=== PATIENT | female | born 1985 | race Caucasian/White ===

== ENCOUNTER 2019-07-10 05:46 | Inpatient (IN) | payer BC ==
[~2019-07-10] VITALS: Ht 180.3 cm; Wt 82.4 kg
[2019-07-10] VITALS (24 sets, daily range): BP systolic 80–157; BP diastolic 44–91
--- NOTE | 2019-07-10 05:53 | NUR ---
KE ARCHER presented to unit via ambulation from home/ED, accompanied by SO, with c/o LABOR, ctxs. KE ARCHER weighed, gowned, voided, and to bed. EFHM and TOCO applied, VS taken. KE ARCHER oriented to bed controls, call light, TV, heat, and A/C controls.
[2019-07-10] MEDS ORDERED: D5 LR IV SOLUTION 1,000 ML IV ONE (06:01)
[2019-07-10] MEDS ORDERED: D5 LR IV SOLUTION 1,000 ML IV SCH (06:10)
[2019-07-10] MEDS ORDERED: PREN-142 PO (06:21)
[2019-07-10 06:50] LABS: BASOPHILS % (AUTO) 0 % (0-10); EOSINOPHILS # (AUTO) 0.2 10^3/uL (0.0-0.3); EOSINOPHILS % (AUTO) 1 % (0-10); HEMATOCRIT 41 % (35-52); HEMOGLOBIN 13.4 G/DL (11.5-16.0); LYMPHOCYTES # (AUTO) 1.9 X 10^3 (1.0-4.0); LYMPHOCYTES % (AUTO) 15 % (12-44); MEAN CORPUSCULAR HEMOGLOBIN 31 PG (25-34); MEAN CORPUSCULAR HGB CONC 33 G/DL (32-36); MEAN CORPUSCULAR VOLUME 94 FL (80-99); MEAN PLATELET VOLUME 12.5 FL (7.4-10.4); MONOCYTES # (AUTO) 1.2 X 10^3 (0.0-1.0); MONOCYTES % (AUTO) 9 % (0-12); NEUTROPHILS # (AUTO) 9.1 X 10^3 (1.8-7.8); NEUTROPHILS % (AUTO) 74 % (42-75); PLATELET COUNT 147 10^3/uL (130-400); RED CELL DISTRIBUTION WIDTH 13.7 % (10.0-14.5); WHITE BLOOD COUNT 12.3 10^3/uL (4.3-11.0)
[2019-07-10] MEDS ORDERED: SUFENTA 0.6MCG/ML BUPIVA 0.125 100 ML ONE (08:08)
[2019-07-10] MEDS ORDERED: fentaNYL INJECTION 100 MCG/2 ML AMP ONE (08:11)
[2019-07-10] MEDS ORDERED: BUPIVACAINE 0.25% 30 ML (SENSORCAINE) VIAL ONE (08:11)
--- NOTE | 2019-07-10 08:12 | NUR ---
anesthesia notified of pt's request for epidural placement.
--- NOTE | 2019-07-10 08:20 | NUR ---
VALERIE Benites here for epidural placement. Procedure explained, consent reviewed and signed by anesthesia. Questions answered to patient's satisfaction. Time out taken to verify correct patient/procedure. 0823-Patient up to side of bed, assisted into sitting position. Betadine prep done x3 and sterile drape applied. 0833- Local done, see anesthesia record. 0836-Test dose given, see anesthesia record for drug and dosage. Epidural catheter secured in place. Epidural placement complete. Assisted back into bed, monitors adjusted. Epidural dosed, see anesthesia record. 0845- Epidural of Sufenta/Bupvicaine @12cc/hr stated per pump. Patient tolerated procedure well.
--- NOTE | 2019-07-10 08:38 | History & Physical-OB ---
OB - Chief Complaint & HPI Date/Time Date of Admission: Date of Admission: Jul 10, 2019 at 6:06 am Date seen by a Provider: Jul 10, 2019 Time Seen by a Provider: 08:15 Chief Complaint/History OB-Reason for Admission/Chief: Onset of Labor Hx : 2 Hx Para: 1 Expected Date of Delivery: Jul 12, 2019 Gestational Age in Weeks: 39 Gestational Age in Days: 5 Admission Nurse Assessment Rev: Yes History of Labs O pos Antibody neg RI RPR NR HBsAg NR HIV NR GC neg GBS neg Allergies and Home Medications Allergies Coded Allergies: No Known Drug Allergies (Unverified , 07/10/19) Home Medications Vit No.124/Iron/FA 1 Each Tablet, 1 EACH PO DAILY, (Reported) Patient Home Medication List Home Medication List Reviewed: Yes OB - History Hx of Present Care: Yes Ultrasounds: Normal mid trimester US Obstetrical Complications: None Medical Complications: None Obstetrical History Hx : 2 Hx Para: 1 Hx Total # of Abortions (Spona: 0 Patient Past Medical History n/a OB - Admission Exam Physical Exam HEENT: NCAT Heart: Rhythm Normal Lungs: Clear Abdomen: Gravid Extremities: Normal Reflexes: Normal Cervical Dilatation: 6cm Effacement: 75% Station: -1 Membranes: Intact Heart Rate: 130's Accelerations: Accelerations Present Decelerations: No Decelerations Short Term Variability: Present Ux Engineer Variability: Average (6-25) Contractions on Admission: < 5 Minutes Apart Intensity: Firm Labs Laboratory Tests Test 07/10/19 06:40 Range/Units White Blood Count 12.3 H 4.3-11.0 10^3/uL Red Blood Count 4.33 L 4.35-5.85 10^6/uL Hemoglobin 13.4 11.5-16.0 G/DL Hematocrit 41 35-52 % Mean Corpuscular Volume 94 80-99 FL Mean Corpuscular Hemoglobin 31 25-34 PG Mean Corpuscular Hemoglobin Concent 33 32-36 G/DL Red Cell Distribution Width 13.7 10.0-14.5 % Platelet Count 147 130-400 10^3/uL Mean Platelet Volume 12.5 H 7.4-10.4 FL Neutrophils (%) (Auto) 74 42-75 % Lymphocytes (%) (Auto) 15 12-44 % Monocytes (%) (Auto) 9 0-12 % Eosinophils (%) (Auto) 1 0-10 % Basophils (%) (Auto) 0 0-10 % Neutrophils # (Auto) 9.1 H 1.8-7.8 X 10^3 Lymphocytes # (Auto) 1.9 1.0-4.0 X 10^3 Monocytes # (Auto) 1.2 H 0.0-1.0 X 10^3 Eosinophils # (Auto) 0.2 0.0-0.3 10^3/uL Basophils # (Auto) 0.0 0.0-0.1 10^3/uL OB - Assessment/Plan/Diagnosis Assessment Assessment: active labor Admission Dx 34 yo @ 39 weeks Active labor GBS neg AMA Admission Status: Inpatient Order (span 2 midnights) Reason for Inpatient Admission: Active labor at term Plan Plan: Expectant Management BIRDIE BRAN DO Jul 10, 2019 8:38 am
[2019-07-10] MEDS ORDERED: ONDANSETRON 4 MG/2 ML (SDV) Z0FRAN ONE (08:43)
[2019-07-10] MEDS ORDERED: LACTATED RINGERS 1,000 ML IV ONE (08:44)
[2019-07-10] MEDS ORDERED: LACTATED RINGERS 1,000 ML IV SCH (09:03)
[2019-07-10] MEDS ORDERED: NALOXONE 0.4 MG/ML 1 ML (NARCAN) VIAL IV PRN ×2 (09:15)
[2019-07-10] MEDS ORDERED: ONDANSETRON 4 MG/2 ML (SDV) Z0FRAN IV PRN (09:15)
[2019-07-10] MEDS ORDERED: METOCLOPRAMIDE INJ 10 MG/2 ML (REGLAN) IV PRN (09:15)
[2019-07-10] MEDS ORDERED: EPIDURAL (SUFENTA 0.6MCG/ML BUPIVA 0.125%) 100 ML BAG EPI PRN (09:15)
[2019-07-10] MEDS ORDERED: diphenhydrAMINE 50 MG/ML INJ (BENADRYL) IV PRN (09:15)
[2019-07-10] MEDS ORDERED: OXYTOCIN/NORMAL SALINE 500 ML IV ONE ×2 (10:33→11:31)
[2019-07-10] MEDS ORDERED: LIDOCAINE/EPI 2% 1:200,00 (XYLOCAINE) 10 ML VIAL ONE (10:33)
[2019-07-10] MEDS: OXYTOCIN/NORMAL SALINE 500 ML IV SCH ×2 (11:08→12:10)
[2019-07-10] MEDS ORDERED: WITCH HAZEL(TUCKS) 40 EA JAR TOP PRN (12:00)
[2019-07-10] MEDS ORDERED: BENZOCAINE/MENTHOL (DERMOPLAST) 56 ML CAN TP PRN (12:00)
[2019-07-10] MEDS ORDERED: DIBUCAINE (NUPERCAINAL) 1% OINT 30 GM TOP PRN (12:00)
[2019-07-10] MEDS ORDERED: TETANUS,DIPTH,PERTUSS P/F (BOOSTRIX) 0.5 ML VIAL IM ONE (12:00)
[2019-07-10] MEDS ORDERED: HYDROcodone/APAP 5 MG/325 MG (LORTAB) TAB PO PRN (12:00)
[2019-07-10] MEDS ORDERED: MEASLES,MUMPS,RUBELLA 1 EA INJ SQ ONE (12:00)
--- NOTE | 2019-07-10 12:04 | OB Labor & Delivery Record ---
L&D History Date of Service Date of Service: Jul 10, 2019 History Expected Date of Delivery: Jul 12, 2019 Gestational Age in Weeks: 39 Hx : 2 Hx Para: 1 Complications Events: Routine care Operative Indications (Cesarea: N/A-Vaginal Delivery Intrapartal Events: None L&D Stage1 Stage One Onset of Labor - Date: Jul 10, 2019 Monitors and Tracing Monitor Mode: External Heart Rate: 140 Monitor Decelerations: None Metal Model Builder Variability: Average (6-10) Short Term Variability: Present Presentation: Vertex Rupture of Membranes Spontaneous Ruture of Membrane: No Amniotic Membrane Rupture Time: 09:15 Amniotic Membrane Fluid Desc.: Clear Vaginal Bleeding Description: Normal Show Induction/Anesthesia Epidural Cath Placement - Time: 0836 Progress/Notes Patient progressed after AROM to complete and +1 station without any further augmentation L&D Stage2 Stage Two Stage II Date: Jul 10, 2019 Monitors and Tracing Monitor Mode: External Heart Rate: 140 Monitor Accelerations: Uniform Monitor Decelerations: None Metal Model Builder Variability: Average (6-10) Short Term Variability: Present Position: Right Occiput Anterior Presentation: Vertex Cord Descript/Complications Cord Vessel Description: 3 Vessels Delivery Type Delivery Method: Spontaneous Vaginal Anterior Shoulder: Right Episiotomy/Perineal Laceration Laceraction(s)/Extensions: Yes Episiotomy Description: Vaginal Extension/lac, 1st degree Degree (describe repair) vaginal lac repaired using 3-0 rapide in usual fashion Condition of Infant Delivery 1 minute Comment: 7 5 minute Comment: 9 Notes Live female infant weight 8lbs 3 oz Condition of Condition of Infant: Living Exam: No Observed Abnormalities Resuscitation Resuscitation: N/A - Spontaneous Resp L&D Stage3 Stage Three Stage III Date: Jul 10, 2019 Pictocin Pitocin Administration Comment: 30 mu wide open after delivery of placenta Placenta Delivery Placenta Delivery: Spontaneous Delivery Summary Summary Estimated blood loss (mL): 300 Attending at delivery: Birdie Bran DO Condition of Delivery Examined: Cervix Examined, Uterus Explored Post Hemorrhage: No Condition of Mother stable Condition of Infant (s) stable BIRDIE BRAN DO Jul 10, 2019 12:04 pm
--- NOTE | 2019-07-10 13:40 | NUR ---
FFU/2. lt rubra noted. tommy-care offered. v-pad and panties in place. assisted up to BR. +void noted. tommy-care instructions given, returned demonstration. v-pad and panties in place. pt transferred to room 309 via w/c with and infant @ side.
[2019-07-10] MEDS ORDERED: CATHETER FLUSH 10 ML SYR IV SCH ×2 (14:00)
[2019-07-10] MEDS: IBUPROFEN 600 MG (MOTRIN) TAB PO SCH ×2 (15:40→21:37)
--- NOTE | 2019-07-10 15:48 | NUR ---
Report given to SANTY Gallegos.
--- NOTE | 2019-07-10 16:30 | NUR ---
WARM BLANKET TO LOWER ABDOMEN R/T CRAMPING. INFANT AT THIS TIME. VISITORS AT BEDSIDE. FF U/2. VAG FLOW LT RUBRA. OFFERED A LORTAB BUT DECLINES AT THIS TIME.
--- NOTE | 2019-07-10 17:35 | NUR ---
STATES DOING BETTER BUT STILL CRAMPING. CONTINUES TO DECLINE LORTAB. VISITORS AT BEDSIDE.
[2019-07-10] MEDS: DOCUSATE SODIUM 100 MG (COLACE) CAP PO SCH (21:37)
[2019-07-11 03:07] VITALS: BP 128/81
[2019-07-11] MEDS: IBUPROFEN 600 MG (MOTRIN) TAB PO SCH ×2 (03:07→09:53)
[2019-07-11 05:56] LABS: BASOPHILS % (AUTO) 0 % (0-10); EOSINOPHILS # (AUTO) 0.2 10^3/uL (0.0-0.3); EOSINOPHILS % (AUTO) 2 % (0-10); HEMATOCRIT 35 % (35-52); HEMOGLOBIN 11.7 G/DL (11.5-16.0); LYMPHOCYTES # (AUTO) 1.6 X 10^3 (1.0-4.0); LYMPHOCYTES % (AUTO) 13 % (12-44); MEAN CORPUSCULAR HEMOGLOBIN 32 PG (25-34); MEAN CORPUSCULAR HGB CONC 33 G/DL (32-36); MEAN CORPUSCULAR VOLUME 95 FL (80-99); MEAN PLATELET VOLUME 12.4 FL (7.4-10.4); MONOCYTES % (AUTO) 8 % (0-12); NEUTROPHILS # (AUTO) 9.5 X 10^3 (1.8-7.8); NEUTROPHILS % (AUTO) 77 % (42-75); PLATELET COUNT 118 10^3/uL (130-400); RED CELL DISTRIBUTION WIDTH 13.6 % (10.0-14.5); WHITE BLOOD COUNT 12.3 10^3/uL (4.3-11.0)
[2019-07-11] MEDS ORDERED: FERROUS SULF 325 MG (IRON) TAB PO SCH (08:00)
--- NOTE | 2019-07-11 08:05 | Postpartum Progress Note ---
Note Note Day # 1 Subjective: Patient is without complaints. Ambulating, voiding. Tolerating a regular diet without nausea or vomiting. Normal lochia. Pain is well controlled with oral pain medications. Objective: Physical Exam: General - Alert and oriented, no apparent distress Abdomen - Soft, appropriately tender to palpation, non-distended, fundus firm at umbilicus Extremities - no edema, negative [place]ano's bilaterally Assessment: PPD 1 NVD Plan: Routine care. Encourage breast feeding. Encourage ambulation. Ferrous sulfate supplementation. Plan for discharge today Vitals - Labs Vital Signs - I&O Vital Signs Date Time Temp Pulse Resp B/P (MAP) Pulse Ox O2 Delivery O2 Flow Rate FiO2 07/11/19 03:07 36.7 59 18 128/81 (97) 99 Room Air 07/10/19 21:37 36.8 63 18 115/72 (86) 97 Room Air 07/10/19 15:40 36.3 54 18 121/68 (85) 100 Room Air 07/10/19 12:15 57 18 80/90 (87) Room Air 07/10/19 12:10 36.6 07/10/19 12:00 62 18 141/90 (107) Room Air 07/10/19 11:45 72 18 142/79 (100) Room Air 07/10/19 11:30 76 18 147/80 (102) Room Air 07/10/19 11:15 82 18 157/86 (109) Room Air 07/10/19 10:45 63 18 143/89 (107) Room Air 07/10/19 10:30 53 18 135/82 (99) 100 Room Air 07/10/19 10:15 54 18 126/80 (95) 100 Room Air 07/10/19 10:00 52 18 120/75 (90) 100 Room Air 07/10/19 09:45 55 18 118/74 (89) 100 Room Air 07/10/19 09:30 60 18 134/85 (101) 98 Room Air 07/10/19 09:15 53 18 133/81 (98) 100 Room Air 07/10/19 09:00 58 18 130/74 (92) 100 Room Air 07/10/19 08:55 57 18 134/67 (89) 99 Room Air 07/10/19 08:52 51 111/66 (81) Room Air 07/10/19 08:50 53 83/44 (57) 100 Room Air 07/10/19 08:48 61 18 100/56 (71) 100 Room Air 07/10/19 08:45 36.3 75 18 116/69 (85) 100 Room Air 07/10/19 08:40 78 18 120/73 (89) 100 Room Air 07/10/19 08:35 56 18 124/79 (94) 100 Room Air 07/10/19 08:30 58 18 143/91 (108) 100 Room Air 07/10/19 08:25 55 18 139/88 (105) 100 Room Air I & O 07/11/19 07:00 Intake Total 2000 ml Balance 2000 ml Labs Laboratory Tests 07/11/19 05:35: White Blood Count 12.3H, Red Blood Count 3.70L, Hemoglobin 11.7, Hematocrit 35, Mean Corpuscular Volume 95, Mean Corpuscular Hemoglobin 32, Mean Corpuscular Hemoglobin Concent 33, Red Cell Distribution Width 13.6, Platelet Count 118L, Mean Platelet Volume 12.4H, Neutrophils (%) (Auto) 77H, Lymphocytes (%) (Auto) 13, Monocytes (%) (Auto) 8, Eosinophils (%) (Auto) 2, Basophils (%) (Auto) 0, Neutrophils # (Auto) 9.5H, Lymphocytes # (Auto) 1.6, Monocytes # (Auto) 1.0, Eosinophils # (Auto) 0.2, Basophils # (Auto) 0.0 BIRDIE BRAN DO Jul 11, 2019 08:05
[2019-07-11] MEDS ORDERED: FERR325T18 PO (08:06)
[2019-07-11] MEDS ORDERED: ACHD5005 PO (08:06)
[2019-07-11] MEDS ORDERED: IBUP-844 PO (08:06)
[2019-07-11] MEDS ORDERED: Benzocaine/Menthol TP (08:07)
[2019-07-11] MEDS ORDERED: DOCU100C37 PO (08:07)
--- NOTE | 2019-07-11 08:07 | Discharge Inst-Women's Service ---
Discharge Inst-Women's Serv Depart Medication/Instructions New, Converted or Re-Newed RX: RX on Chart Final Diagnosis PPD 1 NVD Problems Reviewed?: Yes Consults/Follow Up Additional Follow Up: Yes Orders/Referrals Dr. Bran in 6 weeks Activity Activity: Activity as Tolerated Driving Instructions: No Driving for 1 Week NO SMOKING: NO SMOKING Nothing Inside Vagina: No Douching, No [employer], No Tampons Diet Discharge Diet: No Restrictions Symptoms to Report to : Bleeding Excessive, Pain Increased, Fever Over 101 Degrees F, Vaginal Bleeding Increase, Questions/Concerns For Any Problems or Questions: Contact Your Physician BIRDIE BRAN DO Jul 11, 2019 08:07
[2019-07-11] MEDS: DOCUSATE SODIUM 100 MG (COLACE) CAP PO SCH (08:27)
[2019-07-11 08:35] VITALS: BP 139/90
[2019-07-11 13:40] VITALS: BP 126/90
[2019-07-11 14:30] VITALS: BP 126/90
--- NOTE | 2019-07-11 15:00 | Anesthesia-Regional Post-Op ---
Regional Patient Condition Mental Status: Alert, Oriented x3 Circulation: Same as Pre-Op Headache: Absent Sensation: Full Recovery Motor Block: Absent Post Op Complications Complications None Follow Up Care/Instructions Patient Instructions None needed. Anesthesia/Patient Condition Patient is doing well, no complaints, stable vital signs, no apparent adverse anesthesia problems. OTILIO JOSÉ DO Jul 11, 2019 15:00
--- NOTE | 2019-07-11 15:35 | NUR ---
instructions given with patient understanding. Prescriptions given to pt. Infant in car seat - to exit ambulatory accompanied by Michael Harris RN.
== END 2019-07-11 15:35 | disposition home or self-care (01) | DRG 807 ==
LOC: WSo 05:46 → LDRP 05:46 → WSo 06:05 → LDRP 06:06
PROVIDERS: ADMIT Obstetrics & Gynecology; ATTEND Obstetrics & Gynecology
PROC: 10E0XZZ Delivery of Products of Conception, External Approach (ICD-10-PCS; principal; 2019-07-10)
PROC: 0W8NXZZ Division of Female Perineum, External Approach (ICD-10-PCS; 2019-07-10)
PROC: 0HQ9XZZ Repair Perineum Skin, External Approach (ICD-10-PCS; 2019-07-10)
PROC: 0UQGXZZ Repair Vagina, External Approach (ICD-10-PCS; 2019-07-10)
DX: O70.0 First degree perineal laceration during delivery (principal); Z3A.39 39 weeks gestation of pregnancy; Z37.0 Single live birth
CPT/HCPCS: 36415; 85025; 86850; 86900; 86901; 99212

== ENCOUNTER → 2021-01-19 | Outpatient (CLI) | payer BC ==
[~2021-01-19] MED LIST: ACHD5005 PO; Benzocaine/Menthol TP; DOCU100C37 PO; FERR325T18 PO; IBUP-844 PO; PREN-142 PO
--- NOTE | 2021-01-19 14:45 | Diagnostic Imaging Report ---
INDICATION: anatomy survey. TECHNIQUE: Multiple real-time grayscale images were obtained over the gravid uterus. COMPARISON: None. FINDINGS: Cervix is closed measuring 4.7 cm in length. The placenta is anteriorly positioned with the inferior margin of the placenta located 1.75 cm from the internal cervical os. Due to advanced gestational age, maternal adnexa are not well evaluated. anatomy survey is performed and the following structures are visualized: Urinary bladder, stomach, three-vessel cord, kidneys, bilateral upper extremities, intracranial contents, four-chamber heart, left ventricular outflow tract, right ventricular apical tract, umbilical cord insertion, bilateral lower extremities and lip/nose. Biometrical measurements are as follows: Biparietal 4.30 cm, age 19 weeks 1 days. Head circumference 16.89 cm, age 19 weeks 4 days. Abdominal circumference 14.38 cm, age 19 weeks 5 days. Femur length 3.19 cm, age 20 weeks 0 days. Sonographic estimate age: 19 weeks 5 days. Sonographic estimated date of delivery: 06/10/2021. Estimated Weight: 311 gm (+/- 45 gm). LMP percentile: 26%. heart rate: 153 beats per minute. number: 1 of 1. IMPRESSION: 1. Single live intrauterine with normal anatomy survey. 2. Marginal placenta has inferior margin 1.7 cm from the internal cervical os. Consider follow-up ultrasound to determine if there is further migration throughout . Dictated by: Dictated on workstation # [id number]
== END ==
LOC: RAD 10:07
PROVIDERS: ATTEND Obstetrics & Gynecology
DX: Z34.02 Encounter for supervision of normal first pregnancy, second trimester (principal); Z3A.00 Weeks of gestation of pregnancy not specified
CPT/HCPCS: 76805

== ENCOUNTER 2021-03-08 19:31 | Outpatient (CLI) | payer BC ==
[~2021-03-08] VITALS: Ht 177.8 cm; Wt 76.6 kg
[2021-03-08] MEDS ORDERED: ASPI-999 PO (19:44)
[2021-03-08 19:45] VITALS: BP 128/82
[2021-03-08 19:57] LABS: BILIRUBIN,URINE NEGATIVE (NEGATIVE); CLARITY,URINE CLEAR; COLOR,URINE YELLOW; GLUCOSE, URINE (UA) NEGATIVE (NEGATIVE); KETONES,URINE NEGATIVE (NEGATIVE); LEUKOCYTE ESTERASE ,URINE NEGATIVE (NEGATIVE); NITRITE,URINE NEGATIVE (NEGATIVE); PROTEIN,URINE NEGATIVE (NEGATIVE)
[2021-03-08 20:04] LABS: BACTERIA,URINE TRACE /HPF
--- NOTE | 2021-03-09 07:40 | Physician Query-Final Dx ---
FELICITY AKINS 03/09/21 0740: Clinic Account Progress/Dx Physician Query: Please give diagnosis Please include # weeks gestation Date of Service March 08, 2021 at 19:31 TRU COVINGTON MD 03/09/21 0800: Clinic Account Progress/Dx DIAGNOSIS: Diagnosis False labor at 27 weeks gestation FELICITY AKINS March 09, 2021 07:40 TRU COVINGTON MD March 09, 2021 08:00
== END 2021-03-08 20:30 | disposition home or self-care (01) ==
LOC: LDRP 19:31 → WSo 19:31
PROVIDERS: ATTEND Obstetrics & Gynecology
DX: O26.892 Other specified pregnancy related conditions, second trimester (principal); Z3A.27 27 weeks gestation of pregnancy
CPT/HCPCS: 81000; G0463; 99212

== ENCOUNTER 2021-06-11 07:39 | Inpatient (IN) | payer BC ==
[2021-06-11] VITALS (46 sets, daily range): BP systolic 74–139; BP diastolic 46–88
[~2021-06-11] VITALS: Ht 177.8 cm; Wt 79.2 kg
[~2021-06-11 07:39] MED LIST changes: +ASPI-999 PO
[2021-06-11] MEDS ORDERED: AMPICILLIN FOR IV USE 2,000 MG in WATER (STERILE) FOR INJECTION 14.8 ML IV SCH (07:45)
[2021-06-11] MEDS ORDERED: OXYTOCIN PRE-MIX DRIP 500 ML IV SCH ×2 (07:45→16:00)
[2021-06-11] MEDS: D5 LR IV SOLUTION 1,000 ML IV SCH (08:15)
[2021-06-11 08:27] LABS: BASOPHILS # (AUTO) 0.1 10^3/uL (0.0-0.1); BASOPHILS % (AUTO) 1 % (0-10); EOSINOPHILS # (AUTO) 0.2 10^3/uL (0.0-0.3); EOSINOPHILS % (AUTO) 2 % (0-10); HEMATOCRIT 39 % (35-52); LYMPHOCYTES # (AUTO) 1.7 10^3/uL (1.0-4.0); LYMPHOCYTES % (AUTO) 21 % (12-44); MEAN CORPUSCULAR HEMOGLOBIN 32 pg (25-34); MEAN CORPUSCULAR HGB CONC 34 g/dL (32-36); MEAN CORPUSCULAR VOLUME 95 fL (80-99); MEAN PLATELET VOLUME 12.2 fL (9.0-12.2); MONOCYTES # (AUTO) 0.8 10^3/uL (0.0-1.0); MONOCYTES % (AUTO) 10 % (0-12); NEUTROPHILS # (AUTO) 5.3 10^3/uL (1.8-7.8); NEUTROPHILS % (AUTO) 65 % (42-75); PLATELET COUNT 137 10^3/uL (130-400); WHITE BLOOD COUNT 8.1 10^3/uL (4.3-11.0)
[2021-06-11] MEDS ORDERED: fentaNYL 2 mcg/ml BUPIVA 0.125 100 ML ONE (11:44)
[2021-06-11] MEDS ORDERED: fentaNYL INJ 100 MCG/2 ML AMP ONE (11:55)
[2021-06-11] MEDS ORDERED: BUPIVACAINE 0.25% 30 ML (SENSORCAINE) VIAL ONE (11:55)
[2021-06-11] MEDS: AMPICILLIN FOR IV USE 1,000 MG in WATER (STERILE) FOR INJECTION 7.4 ML IV SCH (12:09)
[2021-06-11] MEDS: EPIDURAL (fentaNYL 2 MCG/ML BUPIVA 0.125%)100 ML BAG EPI PRN (12:30)
[2021-06-11] MEDS ORDERED: NALOXONE 0.4 MG/ML 1 ML (NARCAN) VIAL IV PRN ×2 (12:45→16:00)
[2021-06-11] MEDS ORDERED: LACTATED RINGERS 1,000 ML IV ONE ×2 (12:45)
[2021-06-11] MEDS ORDERED: ONDANSETRON 4 MG/2 ML (SDV) Z0FRAN IV PRN (12:45)
[2021-06-11] MEDS ORDERED: fentaNYL INJ 100 MCG/2 ML AMP INJ ONE (12:45)
--- NOTE | 2021-06-11 15:56 | History & Physical-OB ---
OB - Chief Complaint & HPI Date/Time Date of Admission: Date of Admission: Jun 11, 2021 at 7:39 am Date seen by a Provider: Jun 11, 2021 Time Seen by a Provider: 08:00 Chief Complaint/History OB-Reason for Admission/Chief: Induction of Labor Hx : 3 Hx Para: 2 Expected Date of Delivery: Jun 06, 2021 Gestational Age in Weeks: 40 Gestational Age in Days: 5 Indication for induction: post dates Admission Nurse Assessment Rev: Yes History of Labs GBS pos Allergies and Home Medications Allergies Coded Allergies: No Known Drug Allergies (Unverified , 07/10/19) Home Medications Aspirin 81 Mg Tab.chew, 81 MG PO DAILY Prescribed by: ESE SAUNDERS on 03/08/211943 Vit No.124/Iron/FA 1 Each Tablet, 1 EACH PO DAILY, (Reported) Patient Home Medication List Home Medication List Reviewed: Yes OB - History Hx of Present Care: Yes Ultrasounds: Normal mid trimester US Obstetrical Complications: None Medical Complications: None Patient Past Medical History n/a Social History/Family History 2nd Hand Smoke Exposure: No OB - Admission Exam Physical Exam Vitals: Vital Signs 06/11/21 06/11/21 06/11/21 09:00 09:15 10:15 Temp 36.6 Pulse 54 Resp 16 B/P (MAP) 110/72 (85) Pulse Ox 99 O2 Delivery Room Air HEENT: NCAT Heart: Rhythm Normal Lungs: Clear Abdomen: Gravid Extremities: Normal Reflexes: Normal Cervical Dilatation: 2cm Effacement: 75% Station: -1 Heart Rate: 130's Accelerations: Accelerations Present Decelerations: No Decelerations Short Term Variability: Present Prison Variability: Average (6-25) Contractions on Admission: 6-10 Minutes Apart Intensity: Moderate Verdin Scoring Tool (Modified) Dilation (cm): 1-2cm (1) Effacement (%): 51-79% (2) Descent/Station: -1,0 (2) Cervix Consistency: Soft (2) Cervix Position: Anterior (2) Add 1 point for: Each previous vaginal delivery (1) Subtract 1 point for: Postdate (-1) Verdin Score: 10 Labs Laboratory Tests Test 06/11/21 08:15 Range/Units White Blood Count 8.1 4.3-11.0 10^3/uL Red Blood Count 4.07 3.80-5.11 10^6/uL Hemoglobin 13.0 11.5-16.0 g/dL Hematocrit 39 35-52 % Mean Corpuscular Volume 95 80-99 fL Mean Corpuscular Hemoglobin 32 25-34 pg Mean Corpuscular Hemoglobin Concent 34 32-36 g/dL Red Cell Distribution Width 13.0 10.0-14.5 % Platelet Count 137 130-400 10^3/uL Mean Platelet Volume 12.2 9.0-12.2 fL Immature Granulocyte % (Auto) 2 % Neutrophils (%) (Auto) 65 42-75 % Lymphocytes (%) (Auto) 21 12-44 % Monocytes (%) (Auto) 10 0-12 % Eosinophils (%) (Auto) 2 0-10 % Basophils (%) (Auto) 1 0-10 % Neutrophils # (Auto) 5.3 1.8-7.8 10^3/uL Lymphocytes # (Auto) 1.7 1.0-4.0 10^3/uL Monocytes # (Auto) 0.8 0.0-1.0 10^3/uL Eosinophils # (Auto) 0.2 0.0-0.3 10^3/uL Basophils # (Auto) 0.1 0.0-0.1 10^3/uL Immature Granulocyte # (Auto) 0.2 H 0.0-0.1 10^3/uL OB - Assessment/Plan/Diagnosis Assessment Assessment: group B positive strep, induction of labor Admission Dx 36 yo @ 40.4 IOL for post dates GBS pos AMA Admission Status: Inpatient Order (span 2 midnights) Reason for Inpatient Admission: IOL at 40 weeks Plan Plan: Induction Induction Method: per Pitocin Protocol BIRDIE BRAN DO Jun 11, 2021 3:56 pm
[2021-06-11] MEDS ORDERED: TETANUS,DIPTH,PERTUSS P/F (BOOSTRIX) 0.5 ML VIAL IM ONE (16:00)
[2021-06-11] MEDS ORDERED: WITCH HAZEL(TUCKS) 40 EA JAR TOP PRN (16:00)
[2021-06-11] MEDS ORDERED: HYDROcodone/APAP 5 MG/325 MG (LORTAB) TAB PO PRN (16:00)
[2021-06-11] MEDS ORDERED: BENZOCAINE/MENTHOL (DERMOPLAST) 56 ML CAN TP PRN (16:00)
[2021-06-11] MEDS ORDERED: DIBUCAINE 1% OINTMENT 30 GM TUBE TOP PRN (16:00)
[2021-06-11] MEDS ORDERED: MEASLES,MUMPS,RUBELLA 1 EA INJ SQ ONE (16:00)
--- NOTE | 2021-06-11 16:00 | OB Labor & Delivery Record ---
L&D History Date of Service Date of Service: Jun 11, 2021 History Expected Date of Delivery: Jun 06, 2021 Gestational Age in Weeks: 40 Hx : 3 Hx Para: 2 Complications Events: Routine care Operative Indications (Cesarea: N/A-Vaginal Delivery Intrapartal Events: None L&D Stage1 Stage One Onset of Labor - Date: Jun 11, 2021 Monitors and Tracing Monitor Mode: External Heart Rate: 140 Monitor Accelerations: Uniform Monitor Decelerations: Variable Station: -1 Mcc Variability: Moderate (11-25) Short Term Variability: Present Presentation: Vertex Vital Signs VS - Last 72 Hours, by Label 06/11/21 06/11/21 06/11/21 06/11/21 08:00 09:00 09:15 09:30 Temp 36.6 Pulse 56 54 51 47 Resp 16 16 B/P (MAP) 129/72 (91) 118/71 (87) 120/75 (90) Pulse Ox 99 98 98 100 O2 Delivery Room Air Room Air Room Air Room Air 06/11/21 06/11/21 06/11/21 09:45 10:00 10:15 Pulse 54 54 54 B/P (MAP) 115/71 (86) 119/88 (98) 110/72 (85) Pulse Ox 100 100 99 O2 Delivery Room Air Room Air Room Air Rupture of Membranes Spontaneous Ruture of Membrane: No Amniotic Membrane Rupture Time: 0850 Amniotic Membrane Fluid Desc.: Clear Vaginal Bleeding Description: Normal Show Progress/Notes Patient admitted for IOL AROM and Pitocin augmentation used. She progressed to 5 cm where she received an epidural. She then progressed to complete and +2 station, episode of variable decels and prolonged decelerations into the 70s were noted and the patient was encouraged to push. L&D Stage2 Stage Two Stage II Date: Jun 11, 2021 Monitors and Tracing Monitor Mode: External Heart Rate: 140 Monitor Accelerations: Uniform Monitor Decelerations: Prolonged Circular Knitter Variability: Average (6-10) Short Term Variability: Present Position: Right Occiput Anterior Presentation: Vertex Cord Descript/Complications Cord Vessel Description: 3 Vessels Complications nuchal cord reduced x 1 Delivery Type Infant Delivery Method: Spontaneous Vaginal Anterior Shoulder: Left Episiotomy/Perineal Laceration Laceraction(s)/Extensions: No Condition of Delivery 1 minute Comment: 8 5 minute Comment: 9 Notes Live female weight 8lbs 8oz Condition of Condition of : Living Exam: No Observed Abnormalities Resuscitation Resuscitation: N/A - Spontaneous Resp L&D Stage3 Stage Three Stage III Date: Jun 11, 2021 Pictocin Pitocin Administration mu/min: 4 Pitocin ml/hr: 4 Pitocin Administration Comment: 30 mu wide open after delivery of placenta Placenta Delivery Placenta Delivery: Spontaneous Delivery Summary Summary Estimated blood loss (mL): 250 Attending at delivery: Birdie Bran DO Condition of Delivery Examined: Cervix Examined, Uterus Explored Post Hemorrhage: No Condition of Mother stable Condition of Infant (s) stable BIRDIE BRAN DO Jun 11, 2021 4:00 pm
[2021-06-11] MEDS ORDERED: ACHD5005 PO (16:01)
[2021-06-11] MEDS ORDERED: IBUP-844 PO (16:01)
[2021-06-11] MEDS ORDERED: FERR325T24 PO (16:01)
[2021-06-11] MEDS ORDERED: DCS100C PO (16:01)
--- NOTE | 2021-06-11 16:02 | Discharge Inst-Women's Service ---
Discharge Inst-Women's Serv Depart Medication/Instructions New, Converted or Re-Newed RX: RX on Chart Final Diagnosis PPD 1 NVD Problems Reviewed?: Yes Consults/Follow Up Additional Follow Up: Yes Orders/Referrals Dr. Bran in 6 weeks Activity Activity: Activity as Tolerated Driving Instructions: No Driving for 1 Week NO SMOKING: NO SMOKING Nothing Inside Vagina: No Douching, No [place], No Tampons Diet Discharge Diet: No Restrictions Symptoms to Report to : Bleeding Excessive, Pain Increased, Fever Over 101 Degrees F, Vaginal Bleeding Increase, Questions/Concerns For Any Problems or Questions: Contact Your Physician BIRDIE BRAN DO Jun 11, 2021 4:02 pm
[2021-06-11] MEDS: IBUPROFEN 600 MG (MOTRIN) TAB PO SCH ×2 (18:01→23:27)
[2021-06-11] MEDS: DOCUSATE SODIUM 100 MG (COLACE) CAP PO SCH (21:34)
[2021-06-12] VITALS: BP 118/62
[2021-06-12] MEDS: D5 LR IV SOLUTION 1,000 ML IV SCH ×2 (02:34→02:36)
[2021-06-12] MEDS: EPIDURAL (fentaNYL 2 MCG/ML BUPIVA 0.125%)100 ML BAG EPI PRN (02:34)
[2021-06-12] MEDS: AMPICILLIN FOR IV USE 1,000 MG in WATER (STERILE) FOR INJECTION 7.4 ML IV SCH ×3 (02:34→02:40)
[2021-06-12] MEDS: CATHETER FLUSH 10 ML SYR IV SCH ×2 (02:35→06:10)
[2021-06-12 04:00] VITALS: BP 128/61
[2021-06-12] MEDS: IBUPROFEN 600 MG (MOTRIN) TAB PO SCH ×2 (05:52→13:20)
[2021-06-12 06:06] LABS: BASOPHILS % (AUTO) 0 % (0-10); EOSINOPHILS # (AUTO) 0.2 10^3/uL (0.0-0.3); EOSINOPHILS % (AUTO) 2 % (0-10); HEMATOCRIT 35 % (35-52); HEMOGLOBIN 11.4 g/dL (11.5-16.0); LYMPHOCYTES # (AUTO) 1.6 10^3/uL (1.0-4.0); LYMPHOCYTES % (AUTO) 16 % (12-44); MEAN CORPUSCULAR HEMOGLOBIN 32 pg (25-34); MEAN CORPUSCULAR HGB CONC 33 g/dL (32-36); MEAN CORPUSCULAR VOLUME 99 fL (80-99); MEAN PLATELET VOLUME 12.6 fL (9.0-12.2); MONOCYTES # (AUTO) 0.9 10^3/uL (0.0-1.0); MONOCYTES % (AUTO) 9 % (0-12); NEUTROPHILS # (AUTO) 7.3 10^3/uL (1.8-7.8); NEUTROPHILS % (AUTO) 72 % (42-75); PLATELET COUNT 125 10^3/uL (130-400); WHITE BLOOD COUNT 10.1 10^3/uL (4.3-11.0)
--- NOTE | 2021-06-12 06:52 | Anesthesia-Regional Post-Op ---
Regional Patient Condition Mental Status: Alert, Oriented x3 Circulation: Same as Pre-Op Headache: Absent Sensation: Full Recovery Motor Block: Absent Post Op Complications Complications None Follow Up Care/Instructions Patient Instructions None needed. Anesthesia/Patient Condition Patient is doing well, no complaints, stable vital signs, no apparent adverse anesthesia problems. No complications reported per nursing. D/C home per [facility] Criteria: No BRANDT JANG CRNA Jun 12, 2021 06:52
[2021-06-12] MEDS ORDERED: PRENATAL VITAMIN 1 EA TAB PO SCH (07:00)
[2021-06-12 08:45] VITALS: BP 117/58
[2021-06-12] MEDS ORDERED: FERROUS SULF 325 MG (IRON) TAB PO SCH (09:00)
[2021-06-12] MEDS: DOCUSATE SODIUM 100 MG (COLACE) CAP PO SCH (09:00)
--- NOTE | 2021-06-12 10:56 | Progress Note ---
Standard Progress Note Progress Notes/Assess & Plan Date Seen by a Provider: Jun 12, 2021 Time Seen by a Provider: 10:55 Progress/Assessment & Plan This patient is without complaint. She is ambulating, voiding, tolerating oral intake well and has good pain control. Patient is requesting discharge home. Vital Signs Date Time Temp Pulse Resp B/P (MAP) Pulse Ox O2 Delivery O2 Flow Rate FiO2 06/12/21 04:00 36.5 50 18 128/61 (83) 99 Room Air 06/12/21 00:00 36.4 55 18 118/62 (80) 98 Room Air 06/11/21 20:30 36.6 54 18 119/61 (80) 99 Room Air 06/11/21 17:40 49 126/76 (93) Room Air 06/11/21 17:05 45 107/53 (71) Room Air 06/11/21 16:50 50 111/61 (78) Room Air 06/11/21 16:35 36.8 51 16 111/60 (77) 98 Room Air 06/11/21 16:20 53 122/65 (84) Room Air 06/11/21 16:05 56 124/60 (81) Room Air 06/11/21 15:50 55 115/60 (78) Room Air 06/11/21 15:35 61 126/66 (86) Room Air 06/11/21 15:19 80 139/63 (88) Room Air 06/11/21 15:13 76 120/62 (81) Room Air 06/11/21 15:08 71 120/57 (78) Room Air 06/11/21 15:02 60 103/58 (73) Non Rebreather 10.00 06/11/21 15:00 Room Air 06/11/21 14:58 61 81/51 (61) 100 Non Rebreather 10.00 06/11/21 14:55 56 74/46 (55) Non Rebreather 10.00 06/11/21 14:54 36.2 60 84/51 (62) 100 Non Rebreather 10.00 06/11/21 14:45 55 112/73 (86) Room Air 06/11/21 14:30 52 116/77 (90) Room Air 06/11/21 14:15 55 104/67 (79) Room Air 06/11/21 14:00 55 18 111/71 (84) Room Air 06/11/21 13:50 51 110/72 (85) Room Air 06/11/21 13:45 Room Air 06/11/21 13:40 51 110/63 (79) Room Air 06/11/21 13:30 Room Air 06/11/21 13:30 51 121/59 (79) Room Air 06/11/21 13:15 36.3 51 118/70 (86) Room Air 06/11/21 13:15 Room Air 06/11/21 13:10 48 111/66 (81) Room Air 06/11/21 13:05 48 116/66 (83) Room Air 06/11/21 13:01 48 114/64 (81) Room Air 06/11/21 13:00 Room Air 06/11/21 12:58 52 114/66 (82) Room Air 06/11/21 12:55 52 118/68 (85) Room Air 06/11/21 12:53 52 114/67 (83) Room Air 06/11/21 12:50 55 117/68 (84) Room Air 06/11/21 12:46 56 111/64 (80) Room Air 06/11/21 12:45 Room Air 06/11/21 12:43 58 114/66 (82) Room Air 06/11/21 12:40 60 113/65 (81) Room Air 06/11/21 12:34 55 117/68 (84) 100 Room Air 06/11/21 12:30 Room Air 06/11/21 12:30 61 121/70 (87) 100 Room Air 06/11/21 12:15 57 129/82 (98) 100 Room Air 06/11/21 12:00 56 125/78 (94) 100 Room Air 06/11/21 11:45 Room Air 06/11/21 11:30 50 125/73 (90) 100 Room Air 06/11/21 11:15 Room Air 06/11/21 11:00 Room Air I & O 06/12/21 07:00 Intake Total 2423 ml Balance 2423 ml Vital signs are stable. Patient is afebrile. Fundus is firm below the umbilicus and nontender. Extremities show no clubbing cyanosis. There is no Homans' sign. Assessment and plan Post day #1 status post term spontaneous vaginal delivery doing well. Plan is for routine convalescent care with discharge home at patient's request Final Diagnosis Term spontaneous vaginal delivery TRU COVINGTON MD Jun 12, 2021 10:56
[2021-06-12 13:15] VITALS: BP 108/54
[2021-06-12 17:30] VITALS: BP 108/54
== END 2021-06-12 17:30 | disposition home or self-care (01) | DRG 807 ==
LOC: LDRP 07:39
PROVIDERS: ADMIT Obstetrics & Gynecology; ATTEND Obstetrics & Gynecology
PROC: 10E0XZZ Delivery of Products of Conception, External Approach (ICD-10-PCS; principal; 2021-06-11)
PROC: 3E033VJ Introduction of Other Hormone into Peripheral Vein, Percutaneous Approach (ICD-10-PCS; 2021-06-11)
DX: O48.0 Post-term pregnancy (principal); Z37.0 Single live birth; Z3A.40 40 weeks gestation of pregnancy; O69.81X0 Labor and delivery complicated by cord around neck, without compression, not applicable or unspecified; O99.824 Streptococcus B carrier state complicating childbirth
CPT/HCPCS: 36415; 85025; 86850; 86900; 86901